=== PATIENT | female | born 1970 | race Caucasian/White ===

== ENCOUNTER 2019-04-21 22:32 | Emergency (ER) | payer OTHER ==
[~2019-04-21] VITALS: Ht 160 cm; Wt 83.0 kg
[2019-04-21] MEDS ORDERED: PREDNISONE 20 M20 MG PO (22:43)
[2019-04-22 00:03] VITALS: BP 105/52
== END 2019-04-22 00:05 | disposition home or self-care (01) ==
LOC: ER 22:32
DX: S09.8XXA Other specified injuries of head, initial encounter (principal); F17.210 Nicotine dependence, cigarettes, uncomplicated; Z88.1 Allergy status to other antibiotic agents; W18.39XA Other fall on same level, initial encounter; Y93.89 Activity, other specified; Y92.89 Other specified places as the place of occurrence of the external cause; Y99.8 Other external cause status

== ENCOUNTER 2019-04-23 03:35 | Emergency (ER) | payer OTHER ==
[~2019-04-23] VITALS: Ht 160 cm; Wt 83.0 kg
[~2019-04-23 03:35] MED LIST: PREDNISONE 20 M20 MG PO
[2019-04-23 04:55] VITALS: BP 117/64
== END 2019-04-23 04:55 | disposition home or self-care (01) ==
LOC: ER 03:35
DX: S16.1XXA Strain of muscle, fascia and tendon at neck level, initial encounter (principal); R13.10 Dysphagia, unspecified; F17.210 Nicotine dependence, cigarettes, uncomplicated; Z90.89 Acquired absence of other organs; Z88.1 Allergy status to other antibiotic agents; W18.39XA Other fall on same level, initial encounter; Y93.89 Activity, other specified; Y92.89 Other specified places as the place of occurrence of the external cause; Y99.8 Other external cause status